=== PATIENT | male | born 1955 | race African-American/Black ===

== ENCOUNTER 2024-04-14 16:41 | Inpatient (IN) ==
[2024-04-14] MEDS: LR 1,000 ML IV 1,000 ML IV SCH (22:54)
[2024-04-15 00:02] VITALS: BMI 28.1
[2024-04-15] MEDS: NS 250 ML IV 25 ML IV PRN (01:34)
[2024-04-15] MEDS: ZOSYN VIAL 3.375 GRAMS 3.375 G in NS 100 ML IV 100 ML IV SCH (01:34)
[2024-04-15 01:47] LABS: BASOPHILS # (AUTO) 0.1 X10^3/uL (0.0-0.1); BASOPHILS % (AUTO) 0.4 % (0.2-1.0); HEMATOCRIT 25.1 % (42.0-54.0); HEMOGLOBIN 8.5 g/dL (13.5-18.0); LYMPHOCYTES # (AUTO) 1.2 X10^3/uL (1.3-2.9); LYMPHOCYTES % (AUTO) 5.3 % (21.0-51.0); MEAN CORPUSCULAR HEMOGLOBIN 28.9 pg (27.0-34.0); MEAN CORPUSCULAR HGB CONC 33.7 g/dL (33.0-35.0); MEAN CORPUSCULAR VOLUME 85.7 fL (80.0-100.0); MEAN PLATELET VOLUME 6.7 fL (7.4-11.0); MONOCYTES # (AUTO) 0.7 x10^3/uL (0.3-0.8); MONOCYTES % (AUTO) 2.9 % (0.0-13.0); NEUTROPHILS # (AUTO) 20.7 x10^3/uL (2.2-4.8); NEUTROPHILS % (AUTO) 91.4 % (42.0-75.0); PLATELET COUNT 571 X10^3/uL (150.0-450.0); RED BLOOD COUNT 2.92 X10^6/uL (4.7-6.0); RED CELL DISTRIBUTION WIDTH 15.8 % (11.6-16.5); WHITE BLOOD COUNT 22.6 X10^3/uL (3.6-10.0)
[2024-04-15 01:55] LABS: ALBUMIN 1.4 g/dL (3.4-5.0); CALCIUM 9.1 mg/dL (8.5-10.1); CARBON DIOXIDE 28.8 mmol/L (21-32); COR CA(FOR HYPOALB) 11.2 mg/dL (8.5-10.1); CREATININE 1.58 mg/dL (0.70-1.30); POTASSIUM 3.5 mmol/L (3.5-5.1); TOTAL PROTEIN 7.2 g/dL (6.4-8.2)
[2024-04-15] MEDS: NovoLIN R (or HumuLIN R) SUBCUT PRN (02:12)
[2024-04-15 02:14] LABS: BAND NEUTROPHILS % 1 % (0-10); PLATELET MORPHOLOGY COMMENT NORMAL (NORMAL)
--- NOTE | 2024-04-15 05:24 | RAD ---
PROCEDURE: Chest X-ray 1 View.HISTORY: ISCHEMIA OF LEFT LOWER EXTREMITY; DM SX: ANGIO/STENTS, [place] .TECHNIQUE: AP portable view.COMPARISON: March 31 this year.TECHNICAL QUALITY: Satisfactory.FINDINGS:Normal-sized heart with previous sternotomy.Mediastinum and hilar regions show no masses or lymphadenopathy.Normal central vascularity.No pulmonary consolidation, masses, pleural fluid, or pneumothorax.No acute bony abnormality.IMPRESSION:No evidence of active cardiopulmonary disease.THIS IS AN ELECTRONICALLY VERIFIED FINAL [id number]/2024 5:21 AM - Electronically signed by Edy Ramsay MD
--- NOTE | 2024-04-15 08:52 | DR.CONSULT ---
CONSULT Consultation for Day of: Date: 04/15/24 Allergies Allergies Allergy/AdvReac Type Severity Reaction Status Date / Time No Known Allergies Allergy Verified 03/31/24 13:05 History of Present Illness History of Present Illness: Patient is formally a patient of Dr. Hoover who was treating rené for left hallux gangrene. The patient had surgery delayed as gangrene was stable and vascular intervention was eventually being planned. Patient presented to [facility] on for hallux amputation of left foot and had not undergone vascular intervention. Pre-op patient was severe worsening of gangrene to midfoot requring transmetatarsal amputation that was left open. Cultures were obtained. Surgery was held to prevent loss of life. Discussion was held with Dr. Coats and Dr. Coronado who both agreed to transfer patien to [facility] for an attempt at revascularization vs below knee amputation. Dr. Coronado informed myself patient may need another washout. Dr. Coats made patient NPO for possible intervention today. WBC is 22.6 currently. Patient started on Zosyn. Past Surgical History Surgical History: Angioplasty/Stents and Cholecystectomy Family History Family Medical History: Diabetes Mellitus, [place] and Sudden Cardiac Social History Does patient currently use any type of tobacco product: No Type of Tobacco Use: None Does any household member use tobacco: No Alcohol Use: None Drug Use: None Medications Home Medications: No Known Allergies Allergy (Verified 03/31/24 13:05) CONTINUE taking the following medications amlodipine 10 mg tablet 10 mg PO QDAY 04/14/24 [History] atorvastatin 20 mg tablet 20 mg PO QPM 04/14/24 [History] carvedilol 6.25 mg tablet 6.25 mg PO BID 04/14/24 [History] glimepiride 4 mg tablet 4 mg PO BID 04/14/24 [History] hydrocodone 10 mg-acetaminophen 325 mg tablet 1 tab PO TID PRN 04/14/24 [History] pantoprazole 40 mg tablet,delayed release 40 mg PO BID 04/14/24 [History] Review of Systems Constitutional: See HPI Skin: See HPI Physical Exam Vital Signs: Vital Signs Temperature 98.7 F Pulse Rate [Left Radial] 79 Pulse Rate [Left Radial] 80 Pulse Rate 75 Pulse Rate 77 Pulse Rate 76 Pulse Rate 78 Pulse Rate 79 Respiratory Rate 24 Respiratory Rate 20 Respiratory Rate 29 Respiratory Rate 20 Respiratory Rate 21 Respiratory Rate 19 Respiratory Rate 23 Blood Pressure [Left Arm] 164/74 Blood Pressure [Left Arm] 148/65 Blood Pressure 140/65 Blood Pressure 136/64 Blood Pressure 123/59 Blood Pressure 148/67 Blood Pressure 164/74 O2 Sat by Pulse Oximetry 100 O2 Sat by Pulse Oximetry 100 O2 Sat by Pulse Oximetry 94 O2 Sat by Pulse Oximetry 97 O2 Sat by Pulse Oximetry 96 O2 Sat by Pulse Oximetry 97 O2 Sat by Pulse Oximetry 97 Oriented: Normal Tenderness: Guarding Skin: Wound (Distal wound to previous tma measuring 20 cm x 10 cm x 5 cm with exposed metatarsal stumps 1-5. ) and Other (Exposedmetatarsal 1-5 of proximal stumps. Areas of purulence of dorsal and plantar flaps. Approximately 10-15 ccs. Tracking along tendons. ) Plan (1) Osteomyelitis of foot, left, acute: Status: Acute Plan: - Discussed with patient and family this AM that patient is at high risk for limb loss as he has extensive infection to the left foot as well as with his PVD he may require below knee amputation if intervention cannot be performed by Dr. Coats. Discussed he will require multiple surgeries. First consisting of washout, cultures, biopsies, antibiotic beads to control and prevent spread of infection. Once infected removed and being treated than will require delayed closure with graft and vac placement deficit. - Discussed with CM if limb salvage attempted will require home health with vac changes. - Will require infectious disease consult. - Patient and fmaily understanding of plan. - Currently NPO. - Consent placed in chart. - Both patient and family understand that this limb may not be salvagable and that a below knee amputation may be required due to vascular disease and extent of infection both are understanding. - Risk of limb loss and infection spread requires immediate surgical intervention as patient has wbc of 22.6 with severe infection of left foot. (2) Gas gangrene of foot: Status: Acute (3) Peripheral vascular disease: Status: Acute Plan: - Dr. Coats planning possible intervention.
[2024-04-15] MEDS: MORPHINE SULFATE INJ 2 MG INJ IVP PRN (11:22)
--- NOTE | 2024-04-15 12:06 | DR.H&P ---
H&P History & Physical for Day of: H&P Date: 04/14/24 Chief Complaint Chief Complaint: gangrenous changes left foot History of Present Illness History of Present Illness: This is a 69 year old male seen by me in early March for referral for ischemia of both lower extremities. At that time he had problems with the great toe of the left foot. Past history of diabetes, hypertension,coronary disease and neuropathy. He has had a right transmetatarsal amputation in the past. At that time he had ankle brachial indices of 0.67 on the right and 0.84 on the left. He underwent a CT angiogram of the aorta with runoff showing significant occlusion of the left superficial femoral artery but did not come back and see us in follow up as planned. He presented to Dr Coronado's office with gangrenous changes of the left foot and required urgent Guillotine transmetatarsal amputation. Since that time his pain is controlled and his foot overall looks good. Our plan would be to try to perform revascularization of the left leg in hopes that we can spare him a below knee amputation or above knee amputation. Past Medical History Past Medical History: Arthritis, Coronary Artery Disease, Diabetes and Hypertension Past Surgical History Surgical History: Angioplasty/Stents and Cholecystectomy Family History Family Medical History: Diabetes Mellitus, [place] and Sudden Cardiac Social History Does patient currently use any type of tobacco product: No Type of Tobacco Use: None Does any household member use tobacco: No Alcohol Use: None Drug Use: None Medications Home Medications: Home Medications Medication Instructions Recorded Confirmed Type amlodipine 10 mg tablet 10 mg PO QDAY 04/14/24 04/14/24 History atorvastatin 20 mg tablet 20 mg PO QPM 04/14/24 04/14/24 History carvedilol 6.25 mg tablet 6.25 mg PO BID 04/14/24 04/14/24 History glimepiride 4 mg tablet 4 mg PO BID 04/14/24 04/14/24 History hydrocodone 10 mg-acetaminophen 1 tab PO TID PRN 04/14/24 04/14/24 History 325 mg tablet pantoprazole 40 mg tablet,delayed 40 mg PO BID 04/14/24 04/14/24 History release Allergies Allergies Allergy/AdvReac Type Severity Reaction Status Date / Time No Known Allergies Allergy Verified 03/31/24 13:05 Labs 04/15/24 01:33 04/15/24 01:33 Labs: Laboratory WBC 22.6 X10^3/uL (3.6-10.0) H 04/15/24 01:33 RBC 2.92 X10^6/uL (4.7-6.0) L 04/15/24 01:33 Hgb 8.5 g/dL (13.5-18.0) L 04/15/24 01:33 Hct 25.1 % (42.0-54.0) L 04/15/24 01:33 MCV 85.7 fL (80.0-100.0) 04/15/24 01:33 MCH 28.9 pg (27.0-34.0) 04/15/24 01:33 MCHC 33.7 g/dL (33.0-35.0) 04/15/24 01:33 RDW 15.8 % (11.6-16.5) 04/15/24 01:33 Plt Count 571 X10^3/uL (150.0-450.0) H 04/15/24 01:33 Plt Count Comment Increased (ADEQUATE) 04/15/24 01:33 MPV 6.7 fL (7.4-11.0) L 04/15/24 01:33 Neut % (Auto) 91.4 % (42.0-75.0) H 04/15/24 01:33 Lymph % (Auto) 5.3 % (21.0-51.0) L 04/15/24 01:33 [place] % (Auto) 2.9 % (0.0-13.0) 04/15/24 01:33 Eos % (Auto) 0.0 % (0.9-2.9) L 04/15/24 01:33 Baso % (Auto) 0.4 % (0.2-1.0) 04/15/24 01:33 Neut # (Auto) 20.7 x10^3/uL (2.2-4.8) H 04/15/24 01:33 Lymph # (Auto) 1.2 X10^3/uL (1.3-2.9) L 04/15/24 01:33 [place] # (Auto) 0.7 x10^3/uL (0.3-0.8) 04/15/24 01:33 Eos # (Auto) 0.0 x10^3/uL (0.0-0.2) 04/15/24 01:33 Baso # (Auto) 0.1 X10^3/uL (0.0-0.1) 04/15/24 01:33 Absolute Nucleated RBC 0.0 /100WBC 04/15/24 01:33 Total Counted 100 04/15/24 01:33 Neutrophils % (Manual) 95 % (39-76) H 04/15/24 01:33 Band Neutrophils % 1 % (0-10) 04/15/24 01:33 Lymphocytes % (Manual) 3 % (13-43) L 04/15/24 01:33 Monocytes % (Manual) 1 % (4-9) L 04/15/24 01:33 Plt Morphology Comment Normal (NORMAL) 04/15/24 01:33 RBC Morphology Normal (NORMAL) 04/15/24 01:33 Sodium 130 mmol/L (136-145) L 04/15/24 01:33 Corrected Sodium 138 mmol/L (136-145) 04/15/24 01:33 Potassium 3.5 mmol/L (3.5-5.1) 04/15/24 01:33 Chloride 92 mmol/L (98-107) L 04/15/24 01:33 Carbon Dioxide 28.8 mmol/L (21-32) 04/15/24 01:33 BUN 22 mg/dL (7-18) H 04/15/24 01:33 Creatinine 1.58 mg/dL (0.70-1.30) H 04/15/24 01:33 Est GFR (MDRD) Af Amer 56 (>60) L 04/15/24 01:33 Est GFR (MDRD) Non-Af 46 (>60) L 04/15/24 01:33 Glucose 426 mg/dL (65-99) H 04/15/24 01:33 POC Glucose (mg/dL) 177 mg/dL (65-99) H 04/15/24 11:27 Calcium 9.1 mg/dL (8.5-10.1) 04/15/24 01:33 Corrected Calcium 11.2 mg/dL (8.5-10.1) H 04/15/24 01:33 Total Bilirubin 0.50 mg/dL (0.2-1.0) 04/15/24 01:33 AST 74 Units/L (15-37) H 04/15/24 01:33 ALT 44 Units/L (12-78) 04/15/24 01:33 Alkaline Phosphatase 347 Units/L (46-116) H 04/15/24 01:33 Total Protein 7.2 g/dL (6.4-8.2) 04/15/24 01:33 Albumin 1.4 g/dL (3.4-5.0) L 04/15/24 01:33 Globulin 5.8 g/dL (2.5-4.5) H 04/15/24 01:33 Albumin/Globulin Ratio 0.2 Ratio (1.1-2.1) L 04/15/24 01:33 Review of Systems Constitutional: See HPI Eyes: No Symptoms Reported ENT: No Symptoms Reported Respiratory: No Symptoms Reported Cardiovascular: No Symptoms Reported Gastrointestinal: No Symptoms Reported Genitourinary: No Symptoms Reported Musculoskeletal: No Symptoms Reported Skin: No Symptoms Reported and See HPI Neurological: No Symptoms Reported Physical Exam Vital Signs: Vital Signs Temperature 98.7 F Pulse Rate 75 Pulse Rate 77 Pulse Rate 76 Respiratory Rate 20 Respiratory Rate 24 Respiratory Rate 20 Respiratory Rate 29 Blood Pressure 140/65 Blood Pressure 136/64 Blood Pressure 123/59 O2 Sat by Pulse Oximetry 100 O2 Sat by Pulse Oximetry 100 O2 Sat by Pulse Oximetry 94 Oriented: Normal, Time, Person and Place Eyes: Normal Ear: Normal Nose: Normal Throat: Normal Respiratory: Clear Throughout Cardiovascular: Normal : Normal Auscultation: Bowel Sounds: Normal Palpation: Normal Tenderness: Normal Skin: Other (open left transmetatarsal amputation with minimal bleeding ) Musculoskeletal: Normal Mood Description: Calm Affect: Normal Speech Pattern: Clear and Appropriate Assessment/Plan (1) Osteomyelitis of foot, left, acute: Status: Acute Plan: see below (2) Gas gangrene of foot: Status: Acute Plan: Has had amputation , will plan for left SFA atherectomy and possible angioplasty vs stenting of the left SFA (3) Peripheral vascular disease: Status: Acute (4) Type 2 diabetes mellitus without complications: Status: Acute Plan: sliding scale insulin (5) Essential (primary) hypertension: Status: Acute Plan: home meds Review H&P Reviewed: Yes Patient was examined?: Yes
[2024-04-15] MEDS: NS 1,000 ML IV 1,000 ML ONE (12:21)
[2024-04-15] MEDS: ANCEF VIAL 1 GRAM ONE (12:21)
[2024-04-15] MEDS: TOBRAMYCIN SULFATE ONE (12:42)
[2024-04-15] MEDS: BETADINE SOLN ONE ×2 (12:42→13:00)
[2024-04-15] MEDS: MARCAINE 0.25% INJ ONE (12:42)
[2024-04-15] MEDS: VANCOMYCIN HCL ONE ×4 (12:42→12:51)
[2024-04-15] MEDS: NORVASC TAB 10 MG PO SCH (13:26)
[2024-04-15] MEDS: COREG TAB 6.25 MG PO SCH (13:27)
[2024-04-15] MEDS: ZOFRAN INJ 4 MG VIAL IVP PRN (13:30)
--- NOTE | 2024-04-15 15:26 | EKG ---
Test Reason : surgical clearance Blood Pressure : */* mmHG Vent. Rate : 85 BPM Atrial Rate : 85 BPM P-R Int : 148 ms QRS Dur : 146 ms QT Int : 468 ms P-R-T Axes : 52 42 45 degrees QTc Int : 556 ms Normal sinus rhythm Right bundle branch block Abnormal ECG No previous ECGs available Confirmed by Timmy Jimenez MD ([id number]) on 04/15/2024 5:05:24 PM Referred By: Confirmed By: Timmy Jimenez MD
[2024-04-15] MEDS: HEPARIN SODIUM INJ 5000 UNITS ONE (16:11)
[2024-04-15] MEDS: SNACK - Diabetic Appropriate PO SCH (20:00)
[2024-04-15] MEDS: CHLORTHALIDONE PO SCH (21:44)
[2024-04-15] MEDS: LIPITOR TAB 40 MG PO SCH (21:45)
[2024-04-15] MEDS: PROTONIX TAB 40 MG PO SCH (21:45)
[2024-04-15] MEDS: NS 100 ML IV 100 ML ONE (22:59)
[2024-04-15] MEDS: HEPARIN SODIUM IN D5W 75,000 UNITS/1,500 ML BAG ONE (22:59)
[2024-04-15] MEDS: VERSED ONE (22:59)
[2024-04-15] MEDS: FENTANYL VIAL INJ 100 mcg ONE (22:59)
[2024-04-15] MEDS: MARCAINE 0.5% ONE (22:59)
[2024-04-15] MEDS: PEPCID 20 MG VIAL ONE (23:00)
[2024-04-15] MEDS: DIPRIVAN VIAL 0 ML ONE (23:00)
[2024-04-15] MEDS: ZOFRAN INJ 4 MG VIAL ONE (23:01)
[2024-04-15] MEDS: PRECEDEX INJ VIAL ONE (23:01)
--- NOTE | 2024-04-15 23:30 | NOTE.SOAP ---
Soap Note Note for Day of Date of Exam: 04/15/24 Subjective Data Subjective Data: HD #2 with admission for gangrenous left footand left SFA occlusion. Debrided by Dr. Godwin of [facility] , [facility] for BKA . WBC=22.6, Cr= 1.58 which is improved. Could not get on schedule for re-vascularization. Objective Data Temperature: 98.6 F Pulse Rate: 75 Respiratory Rate: 15 Blood Pressure: 119/56 O2 Sat by Pulse Oximetry: 97 Objective Data: left foot warm, most of left mid foot still intact WBC still elevated Assessment Assessment: Ischemic left foot with gangrene Plan Plan: Attempt revascularization left leg, still high risk of below knee amputation.
[2024-04-16] MEDS ORDERED: NOZIN NASAL SANITIZER TP ONE (04:56)
[2024-04-16] MEDS ORDERED: HIBICLENS WASH ONE (05:02)
[2024-04-16] MEDS: HIBICLENS WASH EXT ONE (05:08)
[2024-04-16] MEDS: NOZIN NASAL SANITIZER TP ONE (06:09)
[2024-04-16 06:22] LABS: ALANINE AMINOTRANSFERASE 38 Units/L (12-78); ALBUMIN 1.2 g/dL (3.4-5.0); ALKALINE PHOSPHATASE 287 Units/L (46-116); ASPARTATE AMINO TRANSFERASE 58 Units/L (15-37); BLOOD UREA NITROGEN 17 mg/dL (7-18); CALCIUM 8.7 mg/dL (8.5-10.1); CARBON DIOXIDE 29.8 mmol/L (21-32); CHLORIDE 97 mmol/L (98-107); COR CA(FOR HYPOALB) 10.9 mg/dL (8.5-10.1); COR NA(FOR HYPERGLY) 138 mmol/L (136-145); CREATININE 1.37 mg/dL (0.70-1.30); GLUCOSE 217 mg/dL (65-99); SODIUM 135 mmol/L (136-145); TOTAL PROTEIN 6.4 g/dL (6.4-8.2); eGFR NON BLACK RACES 55 (>60)
[2024-04-16 06:25] LABS: BASOPHILS # (AUTO) 0.1 X10^3/uL (0.0-0.1); BASOPHILS % (AUTO) 0.5 % (0.2-1.0); EOSINOPHILS # (AUTO) 0.2 x10^3/uL (0.0-0.2); LYMPHOCYTES # (AUTO) 1.7 X10^3/uL (1.3-2.9); LYMPHOCYTES % (AUTO) 10.6 % (21.0-51.0); MEAN CORPUSCULAR HEMOGLOBIN 29.1 pg (27.0-34.0); MEAN CORPUSCULAR HGB CONC 34.4 g/dL (33.0-35.0); MEAN CORPUSCULAR VOLUME 84.7 fL (80.0-100.0); MEAN PLATELET VOLUME 6.8 fL (7.4-11.0); MONOCYTES # (AUTO) 0.7 x10^3/uL (0.3-0.8); MONOCYTES % (AUTO) 4.4 % (0.0-13.0); NEUTROPHILS # (AUTO) 13.5 x10^3/uL (2.2-4.8); NEUTROPHILS % (AUTO) 83.5 % (42.0-75.0); PLATELET COUNT 511 X10^3/uL (150.0-450.0); RED BLOOD COUNT 2.19 X10^6/uL (4.7-6.0); RED CELL DISTRIBUTION WIDTH 15.3 % (11.6-16.5); WHITE BLOOD COUNT 16.1 X10^3/uL (3.6-10.0)
[2024-04-16 06:27] LABS: POTASSIUM 2.9 mmol/L (3.5-5.1)
[2024-04-16 06:33] LABS: HEMATOCRIT 18.6 % (42.0-54.0); HEMOGLOBIN 6.4 g/dL (13.5-18.0)
[2024-04-16] MEDS ORDERED: CONSULT PHARMACY - POTASSIUM & MAGNESIUM XX SCH (07:00)
[2024-04-16] MEDS: NS 500 ML IV 500 ML IV ONE ×2 (10:45→12:42)
[2024-04-16] MEDS: NS 1,000 ML IV 1,000 ML ONE ×2 (11:22→13:29)
[2024-04-16] MEDS: DIPRIVAN VIAL 20 ML ONE ×3 (12:04→14:02)
[2024-04-16] MEDS: PEPCID 20 MG VIAL ONE (12:04)
[2024-04-16] MEDS: ZOFRAN INJ 4 MG VIAL ONE (12:04)
[2024-04-16] MEDS: FENTANYL VIAL INJ 100 mcg ONE (12:04)
[2024-04-16] MEDS: DECADRON INJ ONE (12:04)
[2024-04-16] MEDS: VERSED ONE (12:04)
[2024-04-16] MEDS: ANCEF VIAL 1 GRAM ONE (12:06)
[2024-04-16] MEDS ORDERED: XYLOCAINE 2 % (PLAIN) ONE (12:06)
[2024-04-16] MEDS: NS 100 ML IV 100 ML ONE (12:06)
[2024-04-16] MEDS ORDERED: KETAMINE HCL ONE (12:06)
[2024-04-16] MEDS: REGLAN INJ 10 MG VIAL ONE (12:06)
[2024-04-16] MEDS: ROBINUL ONE (12:06)
[2024-04-16] MEDS ORDERED: PRECEDEX INJ VIAL ONE (12:06)
[2024-04-16] MEDS: HESPAN IV IN NS 500 ML IV ONE (12:07)
[2024-04-16] MEDS: POTASSIUM CHL 60 MEQ/NS 0.45% 500 ML *CMPD 60 MEQ/500 ML BAG IV NR (12:42)
[2024-04-16] MEDS: VISIPAQUE 50 ML ONE (12:42)
[2024-04-16] MEDS: VISIPAQUE 100 ML ONE (12:42)
[2024-04-16] MEDS: HEPARIN SODIUM INJ 5000 UNITS ONE ×2 (12:44→13:44)
[2024-04-16] MEDS ORDERED: PHARMACY CONSULT - VANCOMYCIN XX SCH (14:00)
[2024-04-16] MEDS: PROTAMINE SULFATE 50 MG VIAL ONE (14:06)
[2024-04-16] MEDS: BETADINE SOLN ONE (14:15)
[2024-04-16] MEDS: TOBRAMYCIN SULFATE ONE (14:19)
[2024-04-16] MEDS: VANCOMYCIN HCL ONE (14:19)
--- NOTE | 2024-04-16 14:57 | OR.IMMED ---
IMMEDIATE POST-OP NOTE Immediate Post-Op Note Date of surgery/procedure: 04/16/24 Pre-Op Diagnosis: limb threatening ischemia left foot , SFA occlusion Post-Op Diagnosis: same , one vessel runoff vis large peroneal on left Procedure: aortogram, arteriogram left leg , atheretomy and drug eluting stenting of the left SFA from takeoff of left SFA down to distal stents of the left SFA , atherctomy and balloon angioplasty distal left SFA stents distally, and atherectomy and drug coated balloon angioplasty of the left distal external iliac artery and left common fermoral artery. Description of Procedure: see dictation Surgeon/Warehouse Traffic Supervisor: Pauly Findings: as above Estimated Blood Loss: 100 cc Complications: none Post Hospital Plans and Medications: return to CCU, leave sole Lopez IV antibiotics, wound vacuum applied after debridement and partial closure left foot.
[2024-04-16] MEDS: VANCOMYCIN IV *PREMIX 1.25 G/250 ML BAG 1.25 G/250 ML PIGGYBACK IV SCH (15:00)
--- NOTE | 2024-04-16 16:50 | RAD ---
EXAM: CHEST x-ray, 1 VIEW HISTORY: central line placement - COMPARISON: X-ray 04/15/2024 FINDINGS: Central venous catheter terminates in the region of the proximal SVC. No pneumothorax is seen. Prior cardiac surgery. Heart is normal size. Lungs are clear. IMPRESSION: Central venous catheter terminates in the region of the proximal SVC without evidence of pneumothorax . THIS IS AN ELECTRONICALLY VERIFIED FINAL REPORT 04/16/2024 4:47 PM - Electronically signed by Rodger Escoto MD
[2024-04-16] MEDS: XARELTO PO SCH (20:54)
--- NOTE | 2024-04-16 23:19 | RAD ---
PROCEDURE: Left Foot 3 Views.HISTORY: Postop.TECHNIQUE: Left AP, lateral, and oblique views.COMPARISON: None.TECHNICAL QUALITY: Satisfactory.FINDINGS:There has been amputation of all the toes at the proximal metatarsal level. Residual irregular bone or dystrophic calcifications in the region of the 2nd through 5th metatarsals extending laterally.Moderate inferior calcaneal spur.Large tarsometatarsal joint spurs probably related to the 1st joint dorsally on the lateral view.IMPRESSION:1. Previous amputation of all the toes at the proximal metatarsal level.2. Dystrophic bone formation or residual bone at the amputation site extending laterally.3. Calcaneal spur.4. Osteoarthritic changes.THIS IS AN ELECTRONICALLY VERIFIED FINAL [id number]/2024 11:16 PM - Electronically signed by Edy Ramsay MD
[2024-04-17] MEDS: NORCO 5/325 MG TAB PO PRN (02:56)
[2024-04-17 05:31] LABS: BLOOD UREA NITROGEN 20 mg/dL (7-18); CALCIUM 8.1 mg/dL (8.5-10.1); CARBON DIOXIDE 29.6 mmol/L (21-32); CHLORIDE 99 mmol/L (98-107); COR NA(FOR HYPERGLY) 140 mmol/L (136-145); CREATININE 1.35 mg/dL (0.70-1.30); GLUCOSE 378 mg/dL (65-99); POTASSIUM 3.7 mmol/L (3.5-5.1); SODIUM 133 mmol/L (136-145); eGFR NON BLACK RACES 56 (>60)
[2024-04-17 05:38] LABS: BASOPHILS % (AUTO) 0.2 % (0.2-1.0); HEMATOCRIT 20.1 % (42.0-54.0); LYMPHOCYTES # (AUTO) 1.2 X10^3/uL (1.3-2.9); LYMPHOCYTES % (AUTO) 6.2 % (21.0-51.0); MEAN CORPUSCULAR HEMOGLOBIN 29.9 pg (27.0-34.0); MEAN CORPUSCULAR HGB CONC 34.7 g/dL (33.0-35.0); MEAN CORPUSCULAR VOLUME 86.1 fL (80.0-100.0); MEAN PLATELET VOLUME 7.1 fL (7.4-11.0); MONOCYTES # (AUTO) 0.7 x10^3/uL (0.3-0.8); MONOCYTES % (AUTO) 3.7 % (0.0-13.0); NEUTROPHILS # (AUTO) 17.3 x10^3/uL (2.2-4.8); NEUTROPHILS % (AUTO) 89.9 % (42.0-75.0); PLATELET COUNT 417 X10^3/uL (150.0-450.0); RED BLOOD COUNT 2.34 X10^6/uL (4.7-6.0); RED CELL DISTRIBUTION WIDTH 15.1 % (11.6-16.5); WHITE BLOOD COUNT 19.2 X10^3/uL (3.6-10.0)
[2024-04-17] MEDS: ASPIRIN EC 81 MG PO SCH (09:10)
[2024-04-17 16:14] LABS: BASOPHILS # (AUTO) 0.1 X10^3/uL (0.0-0.1); BASOPHILS % (AUTO) 0.5 % (0.2-1.0); EOSINOPHILS # (AUTO) 0.1 x10^3/uL (0.0-0.2); EOSINOPHILS % (AUTO) 0.7 % (0.9-2.9); HEMATOCRIT 21.2 % (42.0-54.0); HEMOGLOBIN 7.4 g/dL (13.5-18.0); LYMPHOCYTES # (AUTO) 1.5 X10^3/uL (1.3-2.9); LYMPHOCYTES % (AUTO) 8.1 % (21.0-51.0); MEAN CORPUSCULAR HGB CONC 34.9 g/dL (33.0-35.0); MEAN CORPUSCULAR VOLUME 85.8 fL (80.0-100.0); MEAN PLATELET VOLUME 6.8 fL (7.4-11.0); MONOCYTES # (AUTO) 0.7 x10^3/uL (0.3-0.8); MONOCYTES % (AUTO) 3.9 % (0.0-13.0); NEUTROPHILS # (AUTO) 15.8 x10^3/uL (2.2-4.8); NEUTROPHILS % (AUTO) 86.8 % (42.0-75.0); PLATELET COUNT 456 X10^3/uL (150.0-450.0); RED BLOOD COUNT 2.47 X10^6/uL (4.7-6.0); RED CELL DISTRIBUTION WIDTH 14.9 % (11.6-16.5); WHITE BLOOD COUNT 18.2 X10^3/uL (3.6-10.0)
[2024-04-17] MEDS: PHARMACY COMMENT IV NR (21:54)
--- NOTE | 2024-04-17 22:48 | NOTE.SOAP ---
Soap Note Note for Day of Date of Exam: 04/17/24 Subjective Data Subjective Data: POD # 1 after revascularization left leg after left SFA atherectomy and stenting followed by further debridment and partial closure of left fott transmetatarsal amputation and placment of wound vacuum . Doing well no air leak of wound vacuum Objective Data Temperature: 97.9 F Pulse Rate: 74 Respiratory Rate: 26 Blood Pressure: 148/71 O2 Sat by Pulse Oximetry: 100 Objective Data: Wound va in nplace left foot without [place] leak , left foot warm Assessment Assessment: gangrenous left foot requiring revasdcularization with SFA atherectomy and stenting left SFA and debridement left foot and place wound vacuum Plan Plan: Continue IV antibiotics , wound vacuum and close observation in hopes of limb salvage left foot
[2024-04-18] MEDS: NS 500 ML IV 500 ML IV ONE (05:00)
[2024-04-18 05:39] LABS: BASOPHILS % (AUTO) 0.2 % (0.2-1.0); EOSINOPHILS # (AUTO) 0.2 x10^3/uL (0.0-0.2); LYMPHOCYTES # (AUTO) 1.4 X10^3/uL (1.3-2.9); MEAN PLATELET VOLUME 6.8 fL (7.4-11.0); MONOCYTES # (AUTO) 0.6 x10^3/uL (0.3-0.8); NEUTROPHILS # (AUTO) 11.6 x10^3/uL (2.2-4.8); RED CELL DISTRIBUTION WIDTH 15.1 % (11.6-16.5)
[2024-04-18 05:45] LABS: EOSINOPHILS % (AUTO) 1.3 % (0.9-2.9); LYMPHOCYTES % (AUTO) 9.9 % (21.0-51.0); MEAN CORPUSCULAR HEMOGLOBIN 29.8 pg (27.0-34.0); MEAN CORPUSCULAR HGB CONC 34.6 g/dL (33.0-35.0); MEAN CORPUSCULAR VOLUME 86.1 fL (80.0-100.0); MONOCYTES % (AUTO) 4.3 % (0.0-13.0); NEUTROPHILS % (AUTO) 84.3 % (42.0-75.0); PLATELET COUNT 446 X10^3/uL (150.0-450.0); RED BLOOD COUNT 2.32 X10^6/uL (4.7-6.0); WHITE BLOOD COUNT 13.7 X10^3/uL (3.6-10.0)
[2024-04-18 05:49] LABS: HEMOGLOBIN 6.9 g/dL (13.5-18.0)
[2024-04-18 06:06] LABS: ALANINE AMINOTRANSFERASE 33 Units/L (12-78); ALBUMIN 1.1 g/dL (3.4-5.0); ALKALINE PHOSPHATASE 409 Units/L (46-116); ASPARTATE AMINO TRANSFERASE 52 Units/L (15-37); BLOOD UREA NITROGEN 11 mg/dL (7-18); CALCIUM 8.7 mg/dL (8.5-10.1); CARBON DIOXIDE 30.1 mmol/L (21-32); CHLORIDE 101 mmol/L (98-107); COR NA(FOR HYPERGLY) 137 mmol/L (136-145); CREATININE 1.24 mg/dL (0.70-1.30); GLUCOSE 191 mg/dL (65-99); POTASSIUM 3.5 mmol/L (3.5-5.1); SODIUM 135 mmol/L (136-145); TOTAL PROTEIN 5.7 g/dL (6.4-8.2); eGFR NON BLACK RACES > 60 (>60)
[2024-04-18] MEDS: STERILE WATER IRRIGATION IR ONE (08:22)
[2024-04-18] MEDS: BETADINE SOLN ONE (08:46)
--- NOTE | 2024-04-18 09:38 | NOTE.SOAP ---
Soap Note Note for Day of Date of Exam: 04/18/24 Subjective Data Subjective Data: POD #2 from resction metatarsals 1-5, insertion of antibiotic beads, application of negative pressure therapy device. Patient had to have vac changed yesterday. Nursing staff did it. Nursing instructed me the vac stopped again due to a clot in the tubing. Objective Data Objective Data: Left Lower Extremity: Vac taken down. Wound measuring 10 cm x 8 cm x 5 cm with exposed first metatarsal. Antibiotic beads in placed. Left in the wound bed. Surrounding edges macerated. Denies calf or thigh pain. Discussed stopping wound vac at this time. Assessment Assessment: 69 year old M POD#2 metatarsal resection 1-5, insertion of antibiotic elluding device, delayed partial closrue, and application of wound vac to the left foot with current osteomyelitis. Plan Plan: - Stop Vac for time being. Daily betadine changes. Nursing informed. - Case management to set up home health and wound vac supples to home. - Underwent revascularization with SFA atherectomy and stenting left SFA by Dr. Coats. - Has Infectious Disease from [facility] on board who is managing IV antibiotics. Expect FDC antibiotics IV of 6 weeks. Cultures showing E. Coli. Currently on Vanc and Zosyn. WBC down trending. - Hgb 6.9. Nursing staff to transfuse per nursing from Dr. Coats - I believe patient can be discharged from hospital as antibiotic plan is solidified by Kya DAWSON, wound vac supplies will be deliver to house, he can follow-up with Dr. Coronado who will resume his care to the left foot. - Discussed with Dr. Coats and he is in agreement.
[2024-04-18] MEDS: VANCOMYCIN HCL 1 G in D5W 250 ML IV 250 ML IV SCH (10:31)
[2024-04-18] MEDS ORDERED: NS 500 ML IV 500 ML IV ONE (11:10)
--- NOTE | 2024-04-18 17:16 | NOTE.SOAP ---
Soap Note Note for Day of Date of Exam: 04/18/24 Subjective Data Subjective Data: S/p revscularization of left leg with atherectomy and drug eluting stenting of the left SFA with one vessel runoff via large peroneal and has good collateral flow around ankle . Hgb was 6.9 grams this AM and is to receive 2 units of PRBCs .Wound vacuum dc'd for clot in device and alarming. Objective Data Temperature: 97.7 F Pulse Rate: 90 Respiratory Rate: 16 Blood Pressure: 169/78 O2 Sat by Pulse Oximetry: 98 Objective Data: Dressing intact left foot . Wound inspected by Dr Navarrete today. , Excellent popliteal and PT doppler signals . Cultures growing E. coli. Resistant to Cipro and levaquin, On vancomycin and Zosyn which is covering this Assessment Assessment: Limb salvage left leg , see above Plan Plan: 2 units PRBCs , tentatively discharge home with IV antibiotics per ID on Saturday
[2024-04-18 19:13] LABS: HEMATOCRIT 29.6 % (42.0-54.0)
[2024-04-18 19:18] LABS: HEMOGLOBIN 10.1 g/dL (13.5-18.0)
--- NOTE | 2024-04-19 00:06 | DR.OPNOTE ---
OP NOTE Pre-Op Diagnosis: critical limb threatening ischemia left leg Post-Op Diagnosis: same Procedure Date Date Of Procedure: 04/16/24 Procedure: PROCEDURE: DIAGNOSTIC AORTOGRAM, DIAGNOSTIC ARTERIOGRAM LEFT LEG, ATHERECTOMY AND DRUG COATED STENTING OF THE LEFT SUPERFICIAL FEMORAL ARTERY, ATHERECTOMY AND DRUG COATED BALLOON ANGIOPLASTY LEFT DISTAL EXTERNAL ILIAC ARTERY NARRATIVE : The patient was taken to the operative suite and placed in the dimas pine position. The right groin and entire left leg were prepped and draped in sterile fashion. The patient was given intravenous sedation supervised by myself. Time out for the procedure obtained. Ultrasound used to identify the right femoral artery and the skin overlying it infiltrated with 0.5% Marcaine. Ultrasound then used to guide puncture of the right femoral artery and a 0.012 inch guide wire was placed. Incision made over the guide wire at the skin edge with a # 11 knife blade and a micro sheath placed over the guide wire into the right femoral artery The small guidewire exchanged for a 0.035 inch Advantage glide wire and the micro sheath exchanged for a 5 Fr vascular sheath. Patient given 5000 units of intravenous heparin. Omni catheter was placed over the guide wire into the aorta and diagnostic aortogram carried out with the power injector showing normal aorta with significant stenosis of distal left external iliac artery . Omni catheter was used to steer the guide wire down the left common iliac artery to the distal left external iliac artery . Omni catheter was exchanged for a Marion catheter and sequential arteriograms carried out of the left lower extremity showing completely occluded left superficial femoral artery begining at it's takeoff with resumption of flow present on the left distal superficial femoral artery stent. The 5 Fr sheath in the right groin then exchanged for a 7 Fr destination sheath which was parked in the external iliac artery . Marion catheter and the guide wire were used to traverse the arteries of the left leg ultimately ending in the left peroneal artery . This was selective catheterization. 0.035 inch wire removed and exchanged for a 0.014 inch wire. Over this wire we placed the [place] Stream atherectomy device and performed atherectomy of the occluded proximal left superficial femoral artery and the distal left external iliac artery . At this point we performed stenting of the proximal left superficial femoral artery using an Yasmeen 6 mmx 150 mm and an Yasmeen 6 mm x 100 mm drug eluting stent extending down to the distal left superficial femoral artery stent .The stents post dialted with a 6 mm Steling baloon . The distal left external iliac artery was then dilated for three minutes with a [place] 7mm x 80 mm drug coated ballon. At the completion of this a follow up arteriogram showed excellent results . All wires and devices removed. The 7 Fr sheath was pulled back into the aorta and a 0.035 inch wire placed. The destination sheath exchanged for an Angioseal device used to close the puncture of the right femoral artery. Dressing applied to the left groin. The patient taken to Same Day Surgery in good condition. Type of Anesthesia: Local (0.5% Marcaine ) Anesthesia Comment: plus MAC Findings: Complete occlusion of the left superficial femoral artery with reconstitution of the popliteal artery and 1 vessel runoff by a large peroneal artery with collateral flow around the ankle, severe disease of the distal left external ilac artery Total Amount of Fluid Infused:: 900 cc Urine output: 400 cc EBL: 100cc Hardware: Yasmeen 6mm x 150 mm and Yasmeen 6 mm 100 mm stents Complications:: none Needle/Sponge Count:: correct Disposition/Condition: Pt. tolerated procedure without difficulty. Taken to the floor in stable condition.
[2024-04-19 05:28] LABS: BLOOD UREA NITROGEN 8 mg/dL (7-18); CALCIUM 8.8 mg/dL (8.5-10.1); CARBON DIOXIDE 31.2 mmol/L (21-32); CHLORIDE 98 mmol/L (98-107); COR NA(FOR HYPERGLY) 136 mmol/L (136-145); CREATININE 1.09 mg/dL (0.70-1.30); GLUCOSE 210 mg/dL (65-99); POTASSIUM 3.1 mmol/L (3.5-5.1); SODIUM 133 mmol/L (136-145); eGFR NON BLACK RACES > 60 (>60)
[2024-04-19 05:30] LABS: BASOPHILS # (AUTO) 0.1 X10^3/uL (0.0-0.1); BASOPHILS % (AUTO) 0.5 % (0.2-1.0); EOSINOPHILS # (AUTO) 0.3 x10^3/uL (0.0-0.2); EOSINOPHILS % (AUTO) 1.6 % (0.9-2.9); HEMATOCRIT 28.5 % (42.0-54.0); HEMOGLOBIN 9.8 g/dL (13.5-18.0); LYMPHOCYTES # (AUTO) 1.5 X10^3/uL (1.3-2.9); LYMPHOCYTES % (AUTO) 8.6 % (21.0-51.0); MEAN CORPUSCULAR HEMOGLOBIN 29.7 pg (27.0-34.0); MEAN CORPUSCULAR HGB CONC 34.5 g/dL (33.0-35.0); MEAN CORPUSCULAR VOLUME 86.1 fL (80.0-100.0); MONOCYTES # (AUTO) 0.8 x10^3/uL (0.3-0.8); MONOCYTES % (AUTO) 4.8 % (0.0-13.0); NEUTROPHILS # (AUTO) 14.9 x10^3/uL (2.2-4.8); NEUTROPHILS % (AUTO) 84.5 % (42.0-75.0); PLATELET COUNT 477 X10^3/uL (150.0-450.0); RED CELL DISTRIBUTION WIDTH 14.9 % (11.6-16.5); WHITE BLOOD COUNT 17.6 X10^3/uL (3.6-10.0)
[2024-04-19] MEDS: CATAPRES TAB 0.1 MG PO ONE ×2 (06:34→11:46)
[2024-04-19] MEDS: K-DUR TAB 20 MEQ PO ONE (13:20)
[2024-04-19] MEDS: APRESOLINE INJ 20 MG VIAL IVP ONE (13:20)
--- NOTE | 2024-04-19 16:32 | NOTE.SOAP ---
Soap Note Note for Day of Date of Exam: 04/19/24 Subjective Data Subjective Data: continues to be stable , s/p revascularization left leg and s/p open transmetatarsal amputation of gangrenous left forefoot , now partially closed. Received 2 units PRBCS ysterday . Objective Data Temperature: 98.4 F Pulse Rate: 76 Respiratory Rate: 15 Blood Pressure: 162/76 O2 Sat by Pulse Oximetry: 98 Objective Data: Left foot warm with good doppler signals Assessment Assessment: gangrenous left foot treated as aabove Plan Plan: D/C home tomorrow , +/- wound vacuum and planned terminal worker antibiotics( home health)
[2024-04-20] MEDS: NORMODYNE INJ 20 MG VIAL IV PRN (04:07)
[2024-04-20 05:24] LABS: BASOPHILS # (AUTO) 0.1 X10^3/uL (0.0-0.1); BASOPHILS % (AUTO) 0.5 % (0.2-1.0); EOSINOPHILS # (AUTO) 0.2 x10^3/uL (0.0-0.2); EOSINOPHILS % (AUTO) 1.6 % (0.9-2.9); HEMATOCRIT 25.5 % (42.0-54.0); HEMOGLOBIN 8.9 g/dL (13.5-18.0); LYMPHOCYTES # (AUTO) 1.5 X10^3/uL (1.3-2.9); MEAN CORPUSCULAR HEMOGLOBIN 30.3 pg (27.0-34.0); MEAN CORPUSCULAR HGB CONC 34.8 g/dL (33.0-35.0); MEAN CORPUSCULAR VOLUME 87.1 fL (80.0-100.0); MEAN PLATELET VOLUME 6.9 fL (7.4-11.0); MONOCYTES # (AUTO) 0.7 x10^3/uL (0.3-0.8); MONOCYTES % (AUTO) 4.9 % (0.0-13.0); NEUTROPHILS # (AUTO) 12.2 x10^3/uL (2.2-4.8); PLATELET COUNT 461 X10^3/uL (150.0-450.0); RED BLOOD COUNT 2.93 X10^6/uL (4.7-6.0); WHITE BLOOD COUNT 14.7 X10^3/uL (3.6-10.0)
[2024-04-20 05:30] LABS: ALANINE AMINOTRANSFERASE 19 Units/L (12-78); ALBUMIN 1.2 g/dL (3.4-5.0); ALKALINE PHOSPHATASE 228 Units/L (46-116); ASPARTATE AMINO TRANSFERASE 27 Units/L (15-37); BLOOD UREA NITROGEN 6 mg/dL (7-18); CALCIUM 8.7 mg/dL (8.5-10.1); CHLORIDE 97 mmol/L (98-107); COR CA(FOR HYPOALB) 10.9 mg/dL (8.5-10.1); COR NA(FOR HYPERGLY) 137 mmol/L (136-145); CREATININE 1.08 mg/dL (0.70-1.30); GLUCOSE 250 mg/dL (65-99); MAGNESIUM 1.4 mg/dL (2.0-2.9); POTASSIUM 3.4 mmol/L (3.5-5.1); SODIUM 133 mmol/L (136-145); TOTAL PROTEIN 5.6 g/dL (6.4-8.2); eGFR NON BLACK RACES > 60 (>60)
[2024-04-20] MEDS: CATAPRES TAB 0.1 MG PO ONE (05:39)
[2024-04-20] MEDS: BETADINE SOLN TOP ONE (12:03)
--- NOTE | 2024-04-20 14:21 | W.DIS.FURT ---
Summary of Discharge Discharge Summary of Date Date of Exam: 04/20/24 Admission Date Date of Admission: 04/14/24 Admission Diagnosis Hospital Course: 69 year old male who had been seen previously for non healing wound to the left great toe with ankle brachial indices of approximately 0.65. 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 e was admitted urgently to [facility] and review of CT angiogram showed completed occlusion of the left superficial femoral artery with one vessel runoff via the peroneal artery.He was admitted on April the . He wasplaced on IV antibiotics and he was taken to the operating Suite on 04/16 where he underwent atherectomy and Drug coated stenting of the occluded left Superficial femoral artery. Again he had 1 vessel runoff with a large peroneal artery and good collateral flow to the left foot. on April he underwent revision of the transmetatarsal amputation with partial closure and placement of wound vacuum. He has been seen in consultation by infectious disease from [facility] via [facility] with cultures growing E. coli. . He will be discharged with Home Health consult for wound vacuum change and will be given prescriptions for doxycycline 100 milligrams b i d x 6 weeks and Augmentin 875 milligrams BID time 6 weeks . He will f.u with me in 1 week. F/U Podiatry in 1 week. May require skin graft of the open part of the left foot . Vital Signs: Vital Signs (72 hours) 04/17/24 22:48 04/18/24 17:16 04/19/24 16:32 Temperature 97.9 F 97.7 F 98.4 F Pulse Rate 74 90 76 Respiratory Rate 26 H 16 15 Blood Pressure 148/71 169/78 162/76 O2 Sat by Pulse Oximetry 100 98 98 Oxygen Delivery Method Oxygen Flow Rate FIO2% 04/17/24 14:00 04/17/24 14:01 04/17/24 14:01 Temperature Pulse Rate 71 71 Respiratory Rate 12 11 L Blood Pressure 150/69 O2 Sat by Pulse Oximetry 100 100 Oxygen Delivery Method Oxygen Flow Rate FIO2% 04/17/24 15:00 04/17/24 15:00 04/17/24 15:29 Temperature Pulse Rate 72 Respiratory Rate 11 L 12 Blood Pressure 159/72 O2 Sat by Pulse Oximetry 100 Oxygen Delivery Method Oxygen Flow Rate FIO2% 04/17/24 16:29 04/17/24 16:00 04/17/24 16:00 Temperature 97.9 F Pulse Rate 74 Respiratory Rate 14 26 H Blood Pressure 148/71 O2 Sat by Pulse Oximetry 100 Oxygen Delivery Method Oxygen Flow Rate FIO2% 04/17/24 17:00 04/17/24 17:00 04/17/24 18:00 Temperature Pulse Rate 71 Respiratory Rate 11 L Blood Pressure 166/70 144/64 O2 Sat by Pulse Oximetry 100 Oxygen Delivery Method Oxygen Flow Rate FIO2% 04/17/24 18:00 04/17/24 20:00 04/17/24 20:00 Temperature Pulse Rate 68 71 Respiratory Rate 12 Blood Pressure O2 Sat by Pulse Oximetry 100 100 Oxygen Delivery Method Nasal Cannula Oxygen Flow Rate 2 FIO2% 28 04/17/24 21:53 04/17/24 19:00 04/17/24 19:00 Temperature 97.9 F Pulse Rate 68 Respiratory Rate 19 12 Blood Pressure 159/73 O2 Sat by Pulse Oximetry 100 Oxygen Delivery Method Room Air Nasal Cannula Oxygen Flow Rate 2 FIO2% 04/17/24 23:00 04/17/24 22:23 04/18/24 00:01 Temperature 97.7 F Pulse Rate 73 Respiratory Rate 11 L 12 Blood Pressure 173/78 O2 Sat by Pulse Oximetry 100 Oxygen Delivery Method Nasal Cannula Nasal Cannula Oxygen Flow Rate 2 2 FIO2% 28 04/18/24 00:00 04/18/24 04:00 04/18/24 06:24 Temperature 97.3 F L Pulse Rate 66 71 Respiratory Rate 16 12 12 Blood Pressure 139/65 173/80 O2 Sat by Pulse Oximetry 100 100 Oxygen Delivery Method Nasal Cannula Nasal Cannula Oxygen Flow Rate 2 2 FIO2% 04/18/24 07:24 04/18/24 07:00 04/18/24 08:00 Temperature Pulse Rate 71 79 Respiratory Rate 14 14 16 Blood Pressure O2 Sat by Pulse Oximetry 100 100 Oxygen Delivery Method Oxygen Flow Rate FIO2% 04/18/24 08:01 04/18/24 08:01 04/18/24 08:01 Temperature 98.0 F Pulse Rate 76 Respiratory Rate 13 Blood Pressure 165/72 165/72 O2 Sat by Pulse Oximetry 100 Oxygen Delivery Method Oxygen Flow Rate FIO2% 04/18/24 08:59 04/18/24 12:00 04/18/24 16:00 Temperature 97.9 F 97.7 F Pulse Rate 78 90 Respiratory Rate 16 16 16 Blood Pressure 172/77 169/78 O2 Sat by Pulse Oximetry 99 98 Oxygen Delivery Method Oxygen Flow Rate FIO2% 04/18/24 07:00 04/18/24 09:34 04/18/24 10:00 Temperature Pulse Rate 82 79 Respiratory Rate 15 Blood Pressure O2 Sat by Pulse Oximetry 99 98 Oxygen Delivery Method Room Air Oxygen Flow Rate FIO2% 04/18/24 10:44 04/18/24 10:44 04/18/24 11:00 Temperature Pulse Rate 81 81 Respiratory Rate 13 17 Blood Pressure 186/85 O2 Sat by Pulse Oximetry 100 99 Oxygen Delivery Method Oxygen Flow Rate FIO2% 04/18/24 20:42 04/18/24 21:15 04/18/24 19:00 Temperature Pulse Rate Respiratory Rate 18 Blood Pressure O2 Sat by Pulse Oximetry Oxygen Delivery Method Nasal Cannula Room Air Oxygen Flow Rate 2 FIO2% 28 04/18/24 20:00 04/18/24 21:45 04/19/24 00:00 Temperature 98.4 F 98 F Pulse Rate 87 77 Respiratory Rate 16 18 14 Blood Pressure 188/84 159/71 O2 Sat by Pulse Oximetry 98 97 Oxygen Delivery Method Oxygen Flow Rate FIO2% 04/19/24 04:00 04/18/24 23:30 04/19/24 04:51 Temperature 98.5 F Pulse Rate 80 Respiratory Rate 20 20 21 Blood Pressure 190/81 O2 Sat by Pulse Oximetry 97 Oxygen Delivery Method Oxygen Flow Rate FIO2% 04/19/24 05:21 04/19/24 00:00 04/19/24 07:00 Temperature Pulse Rate 74 Respiratory Rate 16 18 12 Blood Pressure O2 Sat by Pulse Oximetry 97 Oxygen Delivery Method Oxygen Flow Rate FIO2% 04/19/24 07:00 04/19/24 07:10 04/19/24 07:10 Temperature Pulse Rate 77 Respiratory Rate 18 Blood Pressure 186/86 177/82 O2 Sat by Pulse Oximetry 97 Oxygen Delivery Method Oxygen Flow Rate FIO2% 04/19/24 07:20 04/19/24 07:20 04/19/24 07:30 Temperature Pulse Rate 75 75 Respiratory Rate 15 14 Blood Pressure 183/80 O2 Sat by Pulse Oximetry 98 98 Oxygen Delivery Method Oxygen Flow Rate FIO2% 04/19/24 07:30 04/19/24 07:41 04/19/24 07:41 Temperature Pulse Rate Respiratory Rate Blood Pressure 180/84 201/90 201/90 O2 Sat by Pulse Oximetry Oxygen Delivery Method Oxygen Flow Rate FIO2% 04/19/24 07:41 04/19/24 07:43 04/19/24 07:43 Temperature Pulse Rate 82 Respiratory Rate 28 H Blood Pressure 183/78 183/78 O2 Sat by Pulse Oximetry 98 Oxygen Delivery Method Oxygen Flow Rate FIO2% 04/19/24 07:43 04/19/24 07:50 04/19/24 07:50 Temperature Pulse Rate 82 Respiratory Rate 23 Blood Pressure 175/84 175/84 O2 Sat by Pulse Oximetry 98 Oxygen Delivery Method Oxygen Flow Rate FIO2% 04/19/24 07:50 04/19/24 07:50 04/19/24 08:00 Temperature Pulse Rate 89 Respiratory Rate 23 Blood Pressure 175/84 156/66 O2 Sat by Pulse Oximetry 98 Oxygen Delivery Method Oxygen Flow Rate FIO2% 04/19/24 08:00 04/19/24 08:10 04/19/24 08:10 Temperature Pulse Rate 87 84 Respiratory Rate 19 11 L Blood Pressure 158/74 O2 Sat by Pulse Oximetry 98 98 Oxygen Delivery Method Oxygen Flow Rate FIO2% 04/19/24 08:20 04/19/24 08:20 04/19/24 08:30 Temperature Pulse Rate 80 Respiratory Rate 14 Blood Pressure 156/73 159/77 O2 Sat by Pulse Oximetry 97 Oxygen Delivery Method Oxygen Flow Rate FIO2% 04/19/24 08:30 04/19/24 08:40 04/19/24 08:40 Temperature 98.7 F Pulse Rate 90 88 Respiratory Rate 17 30 H Blood Pressure 143/72 O2 Sat by Pulse Oximetry 99 99 Oxygen Delivery Method Oxygen Flow Rate FIO2% 04/19/24 08:50 04/19/24 12:00 04/19/24 14:10 Temperature 98.4 F Pulse Rate 88 76 Respiratory Rate 30 H 15 16 Blood Pressure 163/75 162/76 O2 Sat by Pulse Oximetry 99 98 Oxygen Delivery Method Oxygen Flow Rate FIO2% 04/19/24 15:10 04/19/24 07:00 04/19/24 08:50 Temperature Pulse Rate Respiratory Rate 17 Blood Pressure 163/75 O2 Sat by Pulse Oximetry Oxygen Delivery Method Room Air Oxygen Flow Rate FIO2% 04/19/24 08:50 04/19/24 09:00 04/19/24 09:00 Temperature Pulse Rate 80 79 Respiratory Rate 14 15 Blood Pressure 158/71 O2 Sat by Pulse Oximetry 98 97 Oxygen Delivery Method Oxygen Flow Rate FIO2% 04/19/24 09:10 04/19/24 09:10 04/19/24 09:20 Temperature Pulse Rate 79 Respiratory Rate 14 Blood Pressure 149/56 142/65 O2 Sat by Pulse Oximetry 99 Oxygen Delivery Method Oxygen Flow Rate FIO2% 04/19/24 09:20 04/19/24 09:30 04/19/24 09:30 Temperature Pulse Rate 79 81 Respiratory Rate 14 14 Blood Pressure 167/74 O2 Sat by Pulse Oximetry 99 100 Oxygen Delivery Method Oxygen Flow Rate FIO2% 04/19/24 09:40 04/19/24 09:40 04/19/24 09:50 Temperature Pulse Rate 80 Respiratory Rate 20 Blood Pressure 158/73 165/78 O2 Sat by Pulse Oximetry 99 Oxygen Delivery Method Oxygen Flow Rate FIO2% 04/19/24 09:50 04/19/24 09:50 04/19/24 10:00 Temperature Pulse Rate 78 Respiratory Rate 16 Blood Pressure 165/78 176/81 O2 Sat by Pulse Oximetry 99 Oxygen Delivery Method Oxygen Flow Rate FIO2% 04/19/24 10:00 04/19/24 10:10 04/19/24 10:10 Temperature Pulse Rate 75 76 Respiratory Rate 14 16 Blood Pressure 167/78 O2 Sat by Pulse Oximetry 99 98 Oxygen Delivery Method Oxygen Flow Rate FIO2% 04/19/24 10:20 04/19/24 10:20 04/19/24 10:30 Temperature Pulse Rate 84 80 Respiratory Rate 24 12 Blood Pressure 176/79 O2 Sat by Pulse Oximetry 92 L 98 Oxygen Delivery Method Oxygen Flow Rate FIO2% 04/19/24 10:30 04/19/24 10:40 04/19/24 10:40 Temperature Pulse Rate 75 Respiratory Rate 14 Blood Pressure 170/78 162/74 O2 Sat by Pulse Oximetry 98 Oxygen Delivery Method Oxygen Flow Rate FIO2% 04/19/24 10:50 04/19/24 10:50 04/19/24 11:00 Temperature Pulse Rate 79 Respiratory Rate 19 Blood Pressure 180/81 178/81 O2 Sat by Pulse Oximetry 99 Oxygen Delivery Method Oxygen Flow Rate FIO2% 04/19/24 11:00 04/19/24 12:00 04/19/24 12:00 Temperature Pulse Rate 80 Respiratory Rate 11 L Blood Pressure 162/76 162/76 O2 Sat by Pulse Oximetry 100 Oxygen Delivery Method Oxygen Flow Rate FIO2% 04/19/24 12:00 04/19/24 12:00 04/19/24 13:00 Temperature 98.7 F Pulse Rate 76 92 H Respiratory Rate 15 32 H Blood Pressure 162/76 O2 Sat by Pulse Oximetry 98 99 Oxygen Delivery Method Oxygen Flow Rate FIO2% 04/19/24 13:00 04/19/24 13:55 04/19/24 13:55 Temperature Pulse Rate 91 H Respiratory Rate 22 Blood Pressure 162/76 149/88 O2 Sat by Pulse Oximetry 98 Oxygen Delivery Method Oxygen Flow Rate FIO2% 04/19/24 14:00 04/19/24 14:00 04/19/24 15:00 Temperature Pulse Rate 88 91 H Respiratory Rate 22 19 Blood Pressure 156/66 O2 Sat by Pulse Oximetry 100 97 Oxygen Delivery Method Oxygen Flow Rate FIO2% 04/19/24 15:00 04/19/24 16:00 04/19/24 16:00 Temperature 98.9 F Pulse Rate 89 Respiratory Rate 17 Blood Pressure 161/72 151/68 O2 Sat by Pulse Oximetry 97 Oxygen Delivery Method Oxygen Flow Rate FIO2% 04/19/24 19:24 04/19/24 19:24 04/19/24 21:11 Temperature Pulse Rate 83 Respiratory Rate 15 Blood Pressure O2 Sat by Pulse Oximetry 96 Oxygen Delivery Method Room Air Oxygen Flow Rate FIO2% 04/19/24 19:00 04/19/24 20:00 04/20/24 00:00 Temperature 98.2 F 98 F Pulse Rate 82 75 Respiratory Rate 15 16 Blood Pressure 157/69 148/69 O2 Sat by Pulse Oximetry 97 100 Oxygen Delivery Method Room Air Room Air Room Air Oxygen Flow Rate FIO2% 04/19/24 22:11 04/20/24 04:00 04/20/24 04:14 Temperature 98.6 F Pulse Rate 80 Respiratory Rate 17 16 Blood Pressure 192/86 178/84 O2 Sat by Pulse Oximetry 98 Oxygen Delivery Method Room Air Oxygen Flow Rate FIO2% 04/20/24 04:54 04/20/24 04:45 04/20/24 04:59 Temperature Pulse Rate Respiratory Rate Blood Pressure 169/68 185/84 183/85 O2 Sat by Pulse Oximetry Oxygen Delivery Method Oxygen Flow Rate FIO2% 04/20/24 05:02 04/20/24 05:10 04/20/24 08:39 Temperature Pulse Rate Respiratory Rate 18 Blood Pressure 191/91 189/85 O2 Sat by Pulse Oximetry Oxygen Delivery Method Oxygen Flow Rate FIO2% 04/20/24 08:56 04/20/24 08:20 04/20/24 08:00 Temperature 98.2 F Pulse Rate 86 Respiratory Rate 16 Blood Pressure 131/60 O2 Sat by Pulse Oximetry 97 Oxygen Delivery Method Room Air Room Air Room Air Oxygen Flow Rate FIO2% 04/20/24 09:39 04/20/24 12:55 Temperature Pulse Rate Respiratory Rate 18 18 Blood Pressure O2 Sat by Pulse Oximetry Oxygen Delivery Method Oxygen Flow Rate FIO2% Labs: Laboratory Last Values WBC 14.7 X10^3/uL (3.6-10.0) H 04/20/24 04:56 RBC 2.93 X10^6/uL (4.7-6.0) L 04/20/24 04:56 Hgb 8.9 g/dL (13.5-18.0) L 04/20/24 04:56 Hct 25.5 % (42.0-54.0) L 04/20/24 04:56 MCV 87.1 fL (80.0-100.0) 04/20/24 04:56 MCH 30.3 pg (27.0-34.0) 04/20/24 04:56 MCHC 34.8 g/dL (33.0-35.0) 04/20/24 04:56 RDW 15.0 % (11.6-16.5) 04/20/24 04:56 Plt Count 461 X10^3/uL (150.0-450.0) H 04/20/24 04:56 Plt Count Comment Increased (ADEQUATE) 04/15/24 01:33 MPV 6.9 fL (7.4-11.0) L 04/20/24 04:56 Neut % (Auto) 83.0 % (42.0-75.0) H 04/20/24 04:56 Lymph % (Auto) 10.0 % (21.0-51.0) L 04/20/24 04:56 Angelina % (Auto) 4.9 % (0.0-13.0) 04/20/24 04:56 Eos % (Auto) 1.6 % (0.9-2.9) 04/20/24 04:56 Baso % (Auto) 0.5 % (0.2-1.0) 04/20/24 04:56 Neut # (Auto) 12.2 x10^3/uL (2.2-4.8) H 04/20/24 04:56 Lymph # (Auto) 1.5 X10^3/uL (1.3-2.9) 04/20/24 04:56 Angelina # (Auto) 0.7 x10^3/uL (0.3-0.8) 04/20/24 04:56 Eos # (Auto) 0.2 x10^3/uL (0.0-0.2) 04/20/24 04:56 Baso # (Auto) 0.1 X10^3/uL (0.0-0.1) 04/20/24 04:56 Absolute Nucleated RBC 0.0 /100WBC 04/20/24 04:56 Total Counted 100 04/15/24 01:33 Neutrophils % (Manual) 95 % (39-76) H 04/15/24 01:33 Band Neutrophils % 1 % (0-10) 04/15/24 01:33 Lymphocytes % (Manual) 3 % (13-43) L 04/15/24 01:33 Monocytes % (Manual) 1 % (4-9) L 04/15/24 01:33 Plt Morphology Comment Normal (NORMAL) 04/15/24 01:33 RBC Morphology Normal (NORMAL) 04/15/24 01:33 Sodium 133 mmol/L (136-145) L 04/20/24 04:56 Corrected Sodium 137 mmol/L (136-145) 04/20/24 04:56 Potassium 3.4 mmol/L (3.5-5.1) L 04/20/24 04:56 Chloride 97 mmol/L (98-107) L 04/20/24 04:56 Carbon Dioxide 27.0 mmol/L (21-32) 04/20/24 04:56 BUN 6 mg/dL (7-18) L 04/20/24 04:56 Creatinine 1.08 mg/dL (0.70-1.30) 04/20/24 04:56 Est GFR (MDRD) Af Amer > 60 (>60) 04/20/24 04:56 Est GFR (MDRD) Non-Af > 60 (>60) 04/20/24 04:56 Glucose 250 mg/dL (65-99) H 04/20/24 04:56 POC Glucose (mg/dL) 328 mg/dL (65-99) H 04/20/24 11:37 Calcium 8.7 mg/dL (8.5-10.1) 04/20/24 04:56 Corrected Calcium 10.9 mg/dL (8.5-10.1) H 04/20/24 04:56 Magnesium 1.4 mg/dL (2.0-2.9) L 04/20/24 04:56 Total Bilirubin 0.50 mg/dL (0.2-1.0) 04/20/24 04:56 AST 27 Units/L (15-37) 04/20/24 04:56 ALT 19 Units/L (12-78) 04/20/24 04:56 Alkaline Phosphatase 228 Units/L (46-116) H 04/20/24 04:56 Total Protein 5.6 g/dL (6.4-8.2) L 04/20/24 04:56 Albumin 1.2 g/dL (3.4-5.0) L 04/20/24 04:56 Globulin 4.4 g/dL (2.5-4.5) 04/20/24 04:56 Albumin/Globulin Ratio 0.3 Ratio (1.1-2.1) L 04/20/24 04:56 Random Vancomycin 19.8 ug/mL 04/19/24 21:16 Blood Type B POSITIVE 04/16/24 07:49 Antibody Screen Negative 04/16/24 07:49 Crossmatch See Detail 04/16/24 07:49 Reason For Visit: ISCHEMIA OF LEFT LOWER EXTREMITY Discharge Diagnosis All Active Problems (Updated 04/15/24 @ 12:05 by Jaya Coats) Essential (primary) hypertension (Acute) Type 2 diabetes mellitus without complications (Acute) Peripheral vascular disease (Acute) Gas gangrene of foot (Acute) Osteomyelitis of foot, left, acute (Acute) Plan of Treatment: Continue with present treatment and follow up plan. Pt is to keep follow up appointment as instructed and take medications as ordered. Discharge Medications Discharge Medications: No Known Allergies Allergy (Verified 03/31/24 13:05) CONTINUE taking the following medications amlodipine 10 mg tablet 10 mg PO QDAY 04/14/24 [History] atorvastatin 20 mg tablet 20 mg PO QPM 04/14/24 [History] carvedilol 6.25 mg tablet 6.25 mg PO BID 04/14/24 [History] glimepiride 4 mg tablet 4 mg PO BID 04/14/24 [History] hydrocodone 10 mg-acetaminophen 325 mg tablet 1 tab PO TID PRN 04/14/24 [History] pantoprazole 40 mg tablet,delayed release 40 mg PO BID 04/14/24 [History] allopurinol 100 mg tablet 100 mg PO QDAY 04/19/24 [History] clopidogrel 75 mg tablet 75 mg PO QDAY 04/19/24 [History] insulin detemir U-100 100 unit/mL subcutaneous solution (Levemir U-100 Insulin) 50 unit subcut QDAY 04/19/24 [History] insulin lispro 100 unit/mL subcutaneous solution 5 - 10 unit TID 04/19/24 [History] Doxycyclin 100 mg po BID x 6 weeks Augmentin, 875 mg po VID x 6 weeks Discharge Disposition Assessment: see hospital course Discharge Plan Discharge Plan Hospital Course: 69 year old male who had been seen previously for non healing wound to the left great toe with ankle brachial indices of approximately 0.65. 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 e was admitted urgently to [facility] and review of CT angiogram showed completed occlusion of the left superficial femoral artery with one vessel runoff via the peroneal artery.He was admitted on April the . He wasplaced on IV antibiotics and he was taken to the operating Suite on 04/16 where he underwent atherectomy and Drug coated stenting of the occluded left Superficial femoral artery. Again he had 1 vessel runoff with a large peroneal artery and good collateral flow to the left foot. on April he underwent revision of the transmetatarsal amputation with partial closure and placement of wound vacuum. He has been seen in consultation by infectious disease from [facility] via [facility] with cultures growing E. coli. . He will be discharged with Home Health consult for wound vacuum change and will be given prescriptions for doxycycline 100 milligrams b i d x 6 weeks and Augmentin 875 milligrams BID time 6 weeks . He will f.u with me in 1 week. F/U Podiatry in 1 week. May require skin graft of the open part of the left foot . Patient Disposition: HOME HEALTH SERVICE Condition: Stable Health Concerns: Post Hospitalization: new medications and changes needed to prevent readmission or further decline. Pt educated and given instructions on all concerns. Care Plan Goals: Problem: Infection Goal: Temperature within normal limits. Resolved infection. Instructions: Follow provided instructions. Follow up with primary physician as directed. Contact primary care physician or report to the closest Emergency Room if condition worsens. Plan of Treatment: Continue with present treatment and follow up plan. Pt is to keep follow up appointment as instructed and take medications as ordered. Assessment: see hospital course Prescriptions: New doxycycline hyclate 100 mg capsule 100 mg PO BID Qty: 180 0RF amoxicillin-pot clavulanate 875-125 mg tablet 1 tab PO BID Qty: 180 0RF Continued carvedilol 6.25 mg tablet 6.25 mg PO BID atorvastatin 20 mg tablet 20 mg PO QPM hydrocodone-acetaminophen 10-325 mg tablet 1 tab PO TID PRN amlodipine 10 mg tablet 10 mg PO QDAY pantoprazole 40 mg tablet,delayed release (DR/EC) 40 mg PO BID glimepiride 4 mg tablet 4 mg PO BID clopidogrel 75 mg tablet 75 mg PO QDAY allopurinol 100 mg tablet 100 mg PO QDAY insulin lispro 100 unit/mL solution 5 - 10 unit TID Levemir U-100 Insulin 100 unit/mL solution 50 unit SUBCUT QDAY Follow ups/Referrals Follow ups/Referrals: Gilbert Fuentes [CONSULTING PHYSICIAN] - 04/27/24 3:00 pm Jaya Coats [Primary Care Provider] - 05/04/24 9:30 am Instructions Instructions: Bone Infection (Osteomyelitis) in Adults: What to Know, Negative Pressure Wound Therapy Home Guide, Gangrene, Endovascular Therapy for Peripheral Vascular Disease: What to Know After Stand Alone Forms: Find Help Web Site, Post Hospital Follow Up Care
[2024-04-20] MEDS ORDERED: LR 1,000 ML IV 1,000 ML with MAGNESIUM SULFATE 50% INJ VIAL 1 G IV SCH (15:00)
--- NOTE | 2024-04-20 15:11 | W.DIS.FURT ---
Summary of Discharge Discharge Summary of Date Date of Exam: 04/20/24 Admission Date Date of Admission: 04/14/24 Admission Diagnosis Hospital Course: 69 year old male who had been seen previously for non healing wound to the left great toe with ankle brachial indices of approximately 0.65. 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 e was admitted urgently to [facility] and review of CT angiogram showed completed occlusion of the left superficial femoral artery with one vessel runoff via the peroneal artery.He was admitted on April the . He wasplaced on IV antibiotics and he was taken to the operating Suite on 04/16 where he underwent atherectomy and Drug coated stenting of the occluded left Superficial femoral artery. Again he had 1 vessel runoff with a large peroneal artery and good collateral flow to the left foot. on April he underwent revision of the transmetatarsal amputation with partial closure and placement of wound vacuum. He has been seen in consultation by infectious disease from [place] via [facility] with cultures growing E. coli. . He will be discharged with Home Health consult for wound vacuum change and will be given prescriptions for doxycycline 100 milligrams b i d x 6 weeks and Augmentin 875 milligrams BID time 6 weeks . He will f.u with me in 1 week. F/U Podiatry in 1 week. May require skin graft of the open part of the left foot . Vital Signs: Vital Signs (72 hours) 04/17/24 22:48 04/18/24 17:16 04/19/24 16:32 Temperature 97.9 F 97.7 F 98.4 F Pulse Rate 74 90 76 Respiratory Rate 26 H 16 15 Blood Pressure 148/71 169/78 162/76 O2 Sat by Pulse Oximetry 100 98 98 Oxygen Delivery Method Oxygen Flow Rate FIO2% 04/17/24 15:29 04/17/24 16:29 04/17/24 16:00 Temperature 97.9 F Pulse Rate Respiratory Rate 12 14 Blood Pressure 148/71 O2 Sat by Pulse Oximetry Oxygen Delivery Method Oxygen Flow Rate FIO2% 04/17/24 16:00 04/17/24 17:00 04/17/24 17:00 Temperature Pulse Rate 74 71 Respiratory Rate 26 H 11 L Blood Pressure 166/70 O2 Sat by Pulse Oximetry 100 100 Oxygen Delivery Method Oxygen Flow Rate FIO2% 04/17/24 18:00 04/17/24 18:00 04/17/24 20:00 Temperature Pulse Rate 68 Respiratory Rate 12 Blood Pressure 144/64 O2 Sat by Pulse Oximetry 100 Oxygen Delivery Method Nasal Cannula Oxygen Flow Rate 2 FIO2% 28 04/17/24 20:00 04/17/24 21:53 04/17/24 19:00 Temperature Pulse Rate 71 Respiratory Rate 19 Blood Pressure O2 Sat by Pulse Oximetry 100 Oxygen Delivery Method Room Air Oxygen Flow Rate FIO2% 04/17/24 19:00 04/17/24 23:00 04/17/24 22:23 Temperature 97.9 F 97.7 F Pulse Rate 68 73 Respiratory Rate 12 11 L 12 Blood Pressure 159/73 173/78 O2 Sat by Pulse Oximetry 100 100 Oxygen Delivery Method Nasal Cannula Nasal Cannula Oxygen Flow Rate 2 2 FIO2% 04/18/24 00:01 04/18/24 00:00 04/18/24 04:00 Temperature 97.3 F L Pulse Rate 66 71 Respiratory Rate 16 12 Blood Pressure 139/65 173/80 O2 Sat by Pulse Oximetry 100 100 Oxygen Delivery Method Nasal Cannula Nasal Cannula Nasal Cannula Oxygen Flow Rate 2 2 2 FIO2% 28 04/18/24 06:24 04/18/24 07:24 04/18/24 07:00 Temperature Pulse Rate 71 Respiratory Rate 12 14 14 Blood Pressure O2 Sat by Pulse Oximetry 100 Oxygen Delivery Method Oxygen Flow Rate FIO2% 04/18/24 08:00 04/18/24 08:01 04/18/24 08:01 Temperature Pulse Rate 79 Respiratory Rate 16 Blood Pressure 165/72 165/72 O2 Sat by Pulse Oximetry 100 Oxygen Delivery Method Oxygen Flow Rate FIO2% 04/18/24 08:01 04/18/24 08:59 04/18/24 12:00 Temperature 98.0 F 97.9 F Pulse Rate 76 78 Respiratory Rate 13 16 16 Blood Pressure 172/77 O2 Sat by Pulse Oximetry 100 99 Oxygen Delivery Method Oxygen Flow Rate FIO2% 04/18/24 16:00 04/18/24 07:00 04/18/24 09:34 Temperature 97.7 F Pulse Rate 90 82 Respiratory Rate 16 Blood Pressure 169/78 O2 Sat by Pulse Oximetry 98 99 Oxygen Delivery Method Room Air Oxygen Flow Rate FIO2% 04/18/24 10:00 04/18/24 10:44 04/18/24 10:44 Temperature Pulse Rate 79 81 Respiratory Rate 15 13 Blood Pressure 186/85 O2 Sat by Pulse Oximetry 98 100 Oxygen Delivery Method Oxygen Flow Rate FIO2% 04/18/24 11:00 04/18/24 20:42 04/18/24 21:15 Temperature Pulse Rate 81 Respiratory Rate 17 18 Blood Pressure O2 Sat by Pulse Oximetry 99 Oxygen Delivery Method Nasal Cannula Oxygen Flow Rate 2 FIO2% 28 04/18/24 19:00 04/18/24 20:00 04/18/24 21:45 Temperature 98.4 F Pulse Rate 87 Respiratory Rate 16 18 Blood Pressure 188/84 O2 Sat by Pulse Oximetry 98 Oxygen Delivery Method Room Air Oxygen Flow Rate FIO2% 04/19/24 00:00 04/19/24 04:00 04/18/24 23:30 Temperature 98 F 98.5 F Pulse Rate 77 80 Respiratory Rate 14 20 20 Blood Pressure 159/71 190/81 O2 Sat by Pulse Oximetry 97 97 Oxygen Delivery Method Oxygen Flow Rate FIO2% 04/19/24 04:51 04/19/24 05:21 04/19/24 00:00 Temperature Pulse Rate Respiratory Rate 21 16 18 Blood Pressure O2 Sat by Pulse Oximetry Oxygen Delivery Method Oxygen Flow Rate FIO2% 04/19/24 07:00 04/19/24 07:00 04/19/24 07:10 Temperature Pulse Rate 74 77 Respiratory Rate 12 18 Blood Pressure 186/86 O2 Sat by Pulse Oximetry 97 97 Oxygen Delivery Method Oxygen Flow Rate FIO2% 04/19/24 07:10 04/19/24 07:20 04/19/24 07:20 Temperature Pulse Rate 75 Respiratory Rate 15 Blood Pressure 177/82 183/80 O2 Sat by Pulse Oximetry 98 Oxygen Delivery Method Oxygen Flow Rate FIO2% 04/19/24 07:30 04/19/24 07:30 04/19/24 07:41 Temperature Pulse Rate 75 Respiratory Rate 14 Blood Pressure 180/84 201/90 O2 Sat by Pulse Oximetry 98 Oxygen Delivery Method Oxygen Flow Rate FIO2% 04/19/24 07:41 04/19/24 07:41 04/19/24 07:43 Temperature Pulse Rate 82 Respiratory Rate 28 H Blood Pressure 201/90 183/78 O2 Sat by Pulse Oximetry 98 Oxygen Delivery Method Oxygen Flow Rate FIO2% 04/19/24 07:43 04/19/24 07:43 04/19/24 07:50 Temperature Pulse Rate 82 Respiratory Rate 23 Blood Pressure 183/78 175/84 O2 Sat by Pulse Oximetry 98 Oxygen Delivery Method Oxygen Flow Rate FIO2% 04/19/24 07:50 04/19/24 07:50 04/19/24 07:50 Temperature Pulse Rate 89 Respiratory Rate 23 Blood Pressure 175/84 175/84 O2 Sat by Pulse Oximetry 98 Oxygen Delivery Method Oxygen Flow Rate FIO2% 04/19/24 08:00 04/19/24 08:00 04/19/24 08:10 Temperature Pulse Rate 87 Respiratory Rate 19 Blood Pressure 156/66 158/74 O2 Sat by Pulse Oximetry 98 Oxygen Delivery Method Oxygen Flow Rate FIO2% 04/19/24 08:10 04/19/24 08:20 04/19/24 08:20 Temperature Pulse Rate 84 80 Respiratory Rate 11 L 14 Blood Pressure 156/73 O2 Sat by Pulse Oximetry 98 97 Oxygen Delivery Method Oxygen Flow Rate FIO2% 04/19/24 08:30 04/19/24 08:30 04/19/24 08:40 Temperature Pulse Rate 90 Respiratory Rate 17 Blood Pressure 159/77 143/72 O2 Sat by Pulse Oximetry 99 Oxygen Delivery Method Oxygen Flow Rate FIO2% 04/19/24 08:40 04/19/24 08:50 04/19/24 12:00 Temperature 98.7 F 98.4 F Pulse Rate 88 88 76 Respiratory Rate 30 H 30 H 15 Blood Pressure 163/75 162/76 O2 Sat by Pulse Oximetry 99 99 98 Oxygen Delivery Method Oxygen Flow Rate FIO2% 04/19/24 14:10 04/19/24 15:10 04/19/24 07:00 Temperature Pulse Rate Respiratory Rate 16 17 Blood Pressure O2 Sat by Pulse Oximetry Oxygen Delivery Method Room Air Oxygen Flow Rate FIO2% 04/19/24 08:50 04/19/24 08:50 04/19/24 09:00 Temperature Pulse Rate 80 Respiratory Rate 14 Blood Pressure 163/75 158/71 O2 Sat by Pulse Oximetry 98 Oxygen Delivery Method Oxygen Flow Rate FIO2% 04/19/24 09:00 04/19/24 09:10 04/19/24 09:10 Temperature Pulse Rate 79 79 Respiratory Rate 15 14 Blood Pressure 149/56 O2 Sat by Pulse Oximetry 97 99 Oxygen Delivery Method Oxygen Flow Rate FIO2% 04/19/24 09:20 04/19/24 09:20 04/19/24 09:30 Temperature Pulse Rate 79 Respiratory Rate 14 Blood Pressure 142/65 167/74 O2 Sat by Pulse Oximetry 99 Oxygen Delivery Method Oxygen Flow Rate FIO2% 04/19/24 09:30 04/19/24 09:40 04/19/24 09:40 Temperature Pulse Rate 81 80 Respiratory Rate 14 20 Blood Pressure 158/73 O2 Sat by Pulse Oximetry 100 99 Oxygen Delivery Method Oxygen Flow Rate FIO2% 04/19/24 09:50 04/19/24 09:50 04/19/24 09:50 Temperature Pulse Rate 78 Respiratory Rate 16 Blood Pressure 165/78 165/78 O2 Sat by Pulse Oximetry 99 Oxygen Delivery Method Oxygen Flow Rate FIO2% 04/19/24 10:00 04/19/24 10:00 04/19/24 10:10 Temperature Pulse Rate 75 Respiratory Rate 14 Blood Pressure 176/81 167/78 O2 Sat by Pulse Oximetry 99 Oxygen Delivery Method Oxygen Flow Rate FIO2% 04/19/24 10:10 04/19/24 10:20 04/19/24 10:20 Temperature Pulse Rate 76 84 Respiratory Rate 16 24 Blood Pressure 176/79 O2 Sat by Pulse Oximetry 98 92 L Oxygen Delivery Method Oxygen Flow Rate FIO2% 04/19/24 10:30 04/19/24 10:30 04/19/24 10:40 Temperature Pulse Rate 80 Respiratory Rate 12 Blood Pressure 170/78 162/74 O2 Sat by Pulse Oximetry 98 Oxygen Delivery Method Oxygen Flow Rate FIO2% 04/19/24 10:40 04/19/24 10:50 04/19/24 10:50 Temperature Pulse Rate 75 79 Respiratory Rate 14 19 Blood Pressure 180/81 O2 Sat by Pulse Oximetry 98 99 Oxygen Delivery Method Oxygen Flow Rate FIO2% 04/19/24 11:00 04/19/24 11:00 04/19/24 12:00 Temperature Pulse Rate 80 Respiratory Rate 11 L Blood Pressure 178/81 162/76 O2 Sat by Pulse Oximetry 100 Oxygen Delivery Method Oxygen Flow Rate FIO2% 04/19/24 12:00 04/19/24 12:00 04/19/24 12:00 Temperature 98.7 F Pulse Rate 76 Respiratory Rate 15 Blood Pressure 162/76 162/76 O2 Sat by Pulse Oximetry 98 Oxygen Delivery Method Oxygen Flow Rate FIO2% 04/19/24 13:00 04/19/24 13:00 04/19/24 13:55 Temperature Pulse Rate 92 H Respiratory Rate 32 H Blood Pressure 162/76 149/88 O2 Sat by Pulse Oximetry 99 Oxygen Delivery Method Oxygen Flow Rate FIO2% 04/19/24 13:55 04/19/24 14:00 04/19/24 14:00 Temperature Pulse Rate 91 H 88 Respiratory Rate 22 22 Blood Pressure 156/66 O2 Sat by Pulse Oximetry 98 100 Oxygen Delivery Method Oxygen Flow Rate FIO2% 04/19/24 15:00 04/19/24 15:00 04/19/24 16:00 Temperature 98.9 F Pulse Rate 91 H 89 Respiratory Rate 19 17 Blood Pressure 161/72 O2 Sat by Pulse Oximetry 97 97 Oxygen Delivery Method Oxygen Flow Rate FIO2% 04/19/24 16:00 04/19/24 19:24 04/19/24 19:24 Temperature Pulse Rate 83 Respiratory Rate Blood Pressure 151/68 O2 Sat by Pulse Oximetry 96 Oxygen Delivery Method Room Air Oxygen Flow Rate FIO2% 04/19/24 21:11 04/19/24 19:00 04/19/24 20:00 Temperature 98.2 F Pulse Rate 82 Respiratory Rate 15 15 Blood Pressure 157/69 O2 Sat by Pulse Oximetry 97 Oxygen Delivery Method Room Air Room Air Oxygen Flow Rate FIO2% 04/20/24 00:00 04/19/24 22:11 04/20/24 04:00 Temperature 98 F 98.6 F Pulse Rate 75 80 Respiratory Rate 16 17 16 Blood Pressure 148/69 192/86 O2 Sat by Pulse Oximetry 100 98 Oxygen Delivery Method Room Air Room Air Oxygen Flow Rate FIO2% 04/20/24 04:14 04/20/24 04:54 04/20/24 04:45 Temperature Pulse Rate Respiratory Rate Blood Pressure 178/84 169/68 185/84 O2 Sat by Pulse Oximetry Oxygen Delivery Method Oxygen Flow Rate FIO2% 04/20/24 04:59 04/20/24 05:02 04/20/24 05:10 Temperature Pulse Rate Respiratory Rate Blood Pressure 183/85 191/91 189/85 O2 Sat by Pulse Oximetry Oxygen Delivery Method Oxygen Flow Rate FIO2% 04/20/24 08:39 04/20/24 08:56 04/20/24 08:20 Temperature Pulse Rate Respiratory Rate 18 Blood Pressure O2 Sat by Pulse Oximetry Oxygen Delivery Method Room Air Room Air Oxygen Flow Rate FIO2% 04/20/24 08:00 04/20/24 09:39 04/20/24 12:55 Temperature 98.2 F Pulse Rate 86 Respiratory Rate 16 18 18 Blood Pressure 131/60 O2 Sat by Pulse Oximetry 97 Oxygen Delivery Method Room Air Oxygen Flow Rate FIO2% 04/20/24 12:00 04/20/24 12:00 04/20/24 13:25 Temperature 98.0 F Pulse Rate 79 Respiratory Rate 17 18 Blood Pressure 179/79 O2 Sat by Pulse Oximetry 97 Oxygen Delivery Method Room Air Oxygen Flow Rate FIO2% Labs: Laboratory Last Values WBC 14.7 X10^3/uL (3.6-10.0) H 04/20/24 04:56 RBC 2.93 X10^6/uL (4.7-6.0) L 04/20/24 04:56 Hgb 8.9 g/dL (13.5-18.0) L 04/20/24 04:56 Hct 25.5 % (42.0-54.0) L 04/20/24 04:56 MCV 87.1 fL (80.0-100.0) 04/20/24 04:56 MCH 30.3 pg (27.0-34.0) 04/20/24 04:56 MCHC 34.8 g/dL (33.0-35.0) 04/20/24 04:56 RDW 15.0 % (11.6-16.5) 04/20/24 04:56 Plt Count 461 X10^3/uL (150.0-450.0) H 04/20/24 04:56 Plt Count Comment Increased (ADEQUATE) 04/15/24 01:33 MPV 6.9 fL (7.4-11.0) L 04/20/24 04:56 Neut % (Auto) 83.0 % (42.0-75.0) H 04/20/24 04:56 Lymph % (Auto) 10.0 % (21.0-51.0) L 04/20/24 04:56 [place] % (Auto) 4.9 % (0.0-13.0) 04/20/24 04:56 Eos % (Auto) 1.6 % (0.9-2.9) 04/20/24 04:56 Baso % (Auto) 0.5 % (0.2-1.0) 04/20/24 04:56 Neut # (Auto) 12.2 x10^3/uL (2.2-4.8) H 04/20/24 04:56 Lymph # (Auto) 1.5 X10^3/uL (1.3-2.9) 04/20/24 04:56 [place] # (Auto) 0.7 x10^3/uL (0.3-0.8) 04/20/24 04:56 Eos # (Auto) 0.2 x10^3/uL (0.0-0.2) 04/20/24 04:56 Baso # (Auto) 0.1 X10^3/uL (0.0-0.1) 04/20/24 04:56 Absolute Nucleated RBC 0.0 /100WBC 04/20/24 04:56 Total Counted 100 04/15/24 01:33 Neutrophils % (Manual) 95 % (39-76) H 04/15/24 01:33 Band Neutrophils % 1 % (0-10) 04/15/24 01:33 Lymphocytes % (Manual) 3 % (13-43) L 04/15/24 01:33 Monocytes % (Manual) 1 % (4-9) L 04/15/24 01:33 Plt Morphology Comment Normal (NORMAL) 04/15/24 01:33 RBC Morphology Normal (NORMAL) 04/15/24 01:33 Sodium 133 mmol/L (136-145) L 04/20/24 04:56 Corrected Sodium 137 mmol/L (136-145) 04/20/24 04:56 Potassium 3.4 mmol/L (3.5-5.1) L 04/20/24 04:56 Chloride 97 mmol/L (98-107) L 04/20/24 04:56 Carbon Dioxide 27.0 mmol/L (21-32) 04/20/24 04:56 BUN 6 mg/dL (7-18) L 04/20/24 04:56 Creatinine 1.08 mg/dL (0.70-1.30) 04/20/24 04:56 Est GFR (MDRD) Af Amer > 60 (>60) 04/20/24 04:56 Est GFR (MDRD) Non-Af > 60 (>60) 04/20/24 04:56 Glucose 250 mg/dL (65-99) H 04/20/24 04:56 POC Glucose (mg/dL) 328 mg/dL (65-99) H 04/20/24 11:37 Calcium 8.7 mg/dL (8.5-10.1) 04/20/24 04:56 Corrected Calcium 10.9 mg/dL (8.5-10.1) H 04/20/24 04:56 Magnesium 1.4 mg/dL (2.0-2.9) L 04/20/24 04:56 Total Bilirubin 0.50 mg/dL (0.2-1.0) 04/20/24 04:56 AST 27 Units/L (15-37) 04/20/24 04:56 ALT 19 Units/L (12-78) 04/20/24 04:56 Alkaline Phosphatase 228 Units/L (46-116) H 04/20/24 04:56 Total Protein 5.6 g/dL (6.4-8.2) L 04/20/24 04:56 Albumin 1.2 g/dL (3.4-5.0) L 04/20/24 04:56 Globulin 4.4 g/dL (2.5-4.5) 04/20/24 04:56 Albumin/Globulin Ratio 0.3 Ratio (1.1-2.1) L 04/20/24 04:56 Random Vancomycin 19.8 ug/mL 04/19/24 21:16 Blood Type B POSITIVE 04/16/24 07:49 Antibody Screen Negative 04/16/24 07:49 Crossmatch See Detail 04/16/24 07:49 Reason For Visit: ISCHEMIA OF LEFT LOWER EXTREMITY Discharge Date Discharge Date: 04/20/24 Discharge Diagnosis All Active Problems (Updated 04/15/24 @ 12:05 by Jaya Coats) Essential (primary) hypertension (Acute) Type 2 diabetes mellitus without complications (Acute) Peripheral vascular disease (Acute) Gas gangrene of foot (Acute) Osteomyelitis of foot, left, acute (Acute) Plan of Treatment: Continue with present treatment and follow up plan. Pt is to keep follow up appointment as instructed and take medications as ordered. Discharge Medications Discharge Medications: No Known Allergies Allergy (Verified 03/31/24 13:05) CONTINUE taking the following medications amlodipine 10 mg tablet 10 mg PO QDAY 04/14/24 [History] atorvastatin 20 mg tablet 20 mg PO QPM 04/14/24 [History] carvedilol 6.25 mg tablet 6.25 mg PO BID 04/14/24 [History] glimepiride 4 mg tablet 4 mg PO BID 04/14/24 [History] hydrocodone 10 mg-acetaminophen 325 mg tablet 1 tab PO TID PRN 04/14/24 [History] pantoprazole 40 mg tablet,delayed release 40 mg PO BID 04/14/24 [History] allopurinol 100 mg tablet 100 mg PO QDAY 04/19/24 [History] clopidogrel 75 mg tablet 75 mg PO QDAY 04/19/24 [History] insulin detemir U-100 100 unit/mL subcutaneous solution (Levemir U-100 Insulin) 50 unit subcut QDAY 04/19/24 [History] insulin lispro 100 unit/mL subcutaneous solution 5 - 10 unit TID 04/19/24 [History] New Prescriptions amoxicillin 875 mg-potassium clavulanate 125 mg tablet 1 tab PO BID #180 tabs 04/20/24 [Rx] doxycycline hyclate 100 mg capsule 100 mg PO BID #180 caps 04/20/24 [Rx] percocet, 5 mg , 1 po q 6 hr PRN pain Discharge Disposition Assessment: see hospital course Discharge Plan Discharge Plan Hospital Course: 69 year old male who had been seen previously for non healing wound to the left great toe with ankle brachial indices of approximately 0.65. 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 e was admitted urgently to [facility] and review of CT angiogram showed completed occlusion of the left superficial femoral artery with one vessel runoff via the peroneal artery.He was admitted on April. He wasplaced on IV antibiotics and he was taken to the operating Suite on 04/16 where he underwent atherectomy and Drug coated stenting of the occluded left Superficial femoral artery. Again he had 1 vessel runoff with a large peroneal artery and good collateral flow to the left foot. on April he underwent revision of the transmetatarsal amputation with partial closure and placement of wound vacuum. He has been seen in consultation by infectious disease from [place] via [facility] with cultures growing E. coli. . He will be discharged with Home Health consult for wound vacuum change and will be given prescriptions for doxycycline 100 milligrams b i d x 6 weeks and Augmentin 875 milligrams BID time 6 weeks . He will f.u with me in 1 week. F/U Podiatry in 1 week. May require skin graft of the open part of the left foot . Patient Disposition: HOME HEALTH SERVICE Condition: Stable Health Concerns: Post Hospitalization: new medications and changes needed to prevent readmission or further decline. Pt educated and given instructions on all concerns. Care Plan Goals: Problem: Infection Goal: Temperature within normal limits. Resolved infection. Instructions: Follow provided instructions. Follow up with primary physician as directed. Contact primary care physician or report to the closest Emergency Room if condition worsens. Plan of Treatment: Continue with present treatment and follow up plan. Pt is to keep follow up appointment as instructed and take medications as ordered. Assessment: see hospital course Prescriptions: New doxycycline hyclate 100 mg capsule 100 mg PO BID Qty: 180 0RF amoxicillin-pot clavulanate 875-125 mg tablet 1 tab PO BID Qty: 180 0RF oxycodone-acetaminophen [Percocet] 5-325 mg tablet 1 tab PO Q6H MDD 4 PRNQty: 30 0RF Continued carvedilol 6.25 mg tablet 6.25 mg PO BID atorvastatin 20 mg tablet 20 mg PO QPM hydrocodone-acetaminophen 10-325 mg tablet 1 tab PO TID PRN amlodipine 10 mg tablet 10 mg PO QDAY pantoprazole 40 mg tablet,delayed release (DR/EC) 40 mg PO BID glimepiride 4 mg tablet 4 mg PO BID clopidogrel 75 mg tablet 75 mg PO QDAY allopurinol 100 mg tablet 100 mg PO QDAY insulin lispro 100 unit/mL solution 5 - 10 unit TID Levemir U-100 Insulin 100 unit/mL solution 50 unit SUBCUT QDAY Follow ups/Referrals Follow ups/Referrals: Gilbert Fuentes [CONSULTING PHYSICIAN] - 04/27/24 3:00 pm Jaya Coats [Primary Care Provider] - 05/04/24 9:30 am Instructions Instructions: Bone Infection (Osteomyelitis) in Adults: What to Know, Negative Pressure Wound Therapy Home Guide, Gangrene, Endovascular Therapy for Peripheral Vascular Disease: What to Know After Stand Alone Forms: Find Help Web Site, Post Hospital Follow Up Care
[2024-04-20 15:12] VITALS: BP 162/79; PULSE 82; RESP 23; O2SAT 99
[2024-04-20 15:22] VITALS: TEMP 98.8
== END 2024-04-20 15:55 | disposition home health service (06) | DRG 271 ==
LOC: ICU 22:09
PROVIDERS: ADMIT Surgery; ATTEND Surgery
DX: E11.52 Type 2 diabetes mellitus with diabetic peripheral angiopathy with gangrene; E87.6 Hypokalemia; Z89.422 Acquired absence of other left toe(s); Z59.86 Financial insecurity; E11.65 Type 2 diabetes mellitus with hyperglycemia; Z16.23 Resistance to quinolones and fluoroquinolones; I87.2 Venous insufficiency (chronic) (peripheral); D64.89 Other specified anemias; Z16.29 Resistance to other single specified antibiotic; M77.32 Calcaneal spur, left foot; Z01.810 Encounter for preprocedural cardiovascular examination; M86.172 Other acute osteomyelitis, left ankle and foot; I10 Essential (primary) hypertension; B96.29 Other Escherichia coli [E. coli] as the cause of diseases classified elsewhere; I25.10 Atherosclerotic heart disease of native coronary artery without angina pectoris; I70.222 Atherosclerosis of native arteries of extremities with rest pain, left leg